=== PATIENT | male | born 1950 | race Caucasian/White ===

== ENCOUNTER 2017-08-07 17:51 | Emergency (ER) | payer BC, MEDICARE ==
--- NOTE | 2017-08-07 19:57 | RAD ---
LEFT HAND THREE VIEWS: History: 67-year-old male with left hand pain and hematoma and swelling following an injury after a fall. FINDINGS: There is prominent soft tissue swelling over the dorsal aspect of the hand and extending to the wris t. There is deformity of the fifth metacarpal, evidence for an old healed fracture. Arthrosis change s are noted involving the hand and wrist with some minimal angulation deformity at the proximal inte rphalangeal joint of the fourth finger, in part, possibly related to prior trauma at this location a s well. No evidence for acute fracture. IMPRESSION: Soft tissue swelling. Old healed fracture of the fifth metacarpal. Deformity at the fourth finger pr oximal interphalangeal joint possibly related to old injury and some secondary arthrosis changes. No evidence for acute fracture. POS: CHRISTIANO
== END 2017-08-07 19:20 | disposition home or self-care (01) ==
LOC: SCSER 17:51
DX: S60.222A Contusion of left hand, initial encounter (principal); E10.9 Type 1 diabetes mellitus without complications; E78.5 Hyperlipidemia, unspecified; I10 Essential (primary) hypertension; Z79.899 Other long term (current) drug therapy; Z86.73 Personal history of transient ischemic attack (TIA), and cerebral infarction without residual deficits; W01.198A Fall on same level from slipping, tripping and stumbling with subsequent striking against other object, initial encounter

== ENCOUNTER 2019-09-11 08:31 | Outpatient (CLI) | payer MEDICARE, BC ==
--- NOTE | 2019-09-11 10:13 | MRI ---
EXAM: MRI of the pelvis/prostate without contrast HISTORY: elevated PSA COMPARISON: None TECHNIQUE: Multiplanar multisequence MR images were obtained of the pelvis without IV contrast. Evalu ation of this exam was performed with a [employer] workstation. FINDINGS: Central gland: Moderate hypertrophy of the central gland consistent with BPH. No suspicious low T2 si gnal lesion is seen. Peripheral zone: No restricted diffusion is seen. No low signal on ADC map. Seminal vesicles: Intact without abnormality Neurovascular bundles: Intact Pelvic lymph nodes: No pelvic adenopathy Other visualized intrapelvic structures: Unremarkable Osseous structures: No marrow signal abnormality IMPRESSION: PI-RADS Category 2-low likelihood that a clinically significant cancer is present.
== END 2019-09-11 08:32 | disposition home or self-care (01) ==
LOC: TBSIIMAG 08:31
PROVIDERS: ATTEND Urology
DX: R97.20 Elevated prostate specific antigen [PSA] (principal)
CPT/HCPCS: 72195; 72197; 82565

== ENCOUNTER 2020-10-29 09:58 | Outpatient (CLI) | payer MEDICARE, BC ==
--- NOTE | 2020-10-29 11:50 | MRI ---
MRI OF THE PROSTATE WITHOUT AND WITH CONTRAST: COMPARISON: 09/11/2019. HISTORY: Elevated and increasing PSA. TECHNIQUE: Multiplanar, multisequence MR images were obtained of the prostate without and with IV contrast. FINDINGS: There is moderate hypertrophy of the central gland of the prostate consistent with BPH. Prostate vol ume is estimated at 31 mL. No restricted diffusion or low signal was seen on the ADC map within the prostate. No suspicious low T2 signal lesions are seen in the prostate. No abnormal enhancement is appreciated. The neurovascular bundles and seminal vessels are intact. No pelvic adenopathy is seen. No marrow s ignal abnormality is present. IMPRESSION: PIRADS category 2 - low likelihood that a clinically significant cancer is present. POS: MOUNAA
== END 2020-10-29 09:59 | disposition home or self-care (01) ==
LOC: TBSIIMAG 09:58
PROVIDERS: ATTEND Urology
DX: C61 Malignant neoplasm of prostate (principal)
CPT/HCPCS: 72197; 82565

== ENCOUNTER 2023-05-25 09:28 | Inpatient (IN) | payer MEDICARE, BC ==
[~2023-05-25 09:28] MED LIST: Magnevist 469MG/ML 20 ML VIAL ONE
[2023-05-25 11:37] VITALS: BMI 26.7
[2023-05-25] MEDS ORDERED: Dextrose 50% Abboject 50 ML SYRINGE SLOW IVP PRN (13:54)
[2023-05-25] MEDS ORDERED: Glucagon 1 MG/ML KIT IM PRN (13:54)
[2023-05-25] MEDS ORDERED: hydrALAZINE 20 MG/ML VIAL SLOW IVP PRN (13:54)
[2023-05-25] MEDS ORDERED: Ondansetron ODT 4 MG TAB PO PRN (13:54)
[2023-05-25] MEDS ORDERED: Ondansetron PF 4 MG/2 ML Vial IVP PRN (13:54)
[2023-05-25] MEDS ORDERED: Ipratropium/Albuterol 3 ML NEB NEB PRN (13:54)
[2023-05-25] MEDS ORDERED: Dextrose 5% in Water 1,000 ML IV PRN (13:54)
[2023-05-25] MEDS ORDERED: Sodium Chloride 0.9% 1,000 ML IV SCH (14:00)
[2023-05-25] MEDS: niCARdipine 25 MG in Sodium Chloride 0.9% 250 ML 250 ML IVPB SCH ×3 (14:25→18:43)
[2023-05-25] MEDS: hydrALAZINE 20 MG/ML VIAL SLOW IVP PRN (15:26)
[2023-05-25] MEDS ORDERED: Lidocaine 1% w/Epinephrine 1:100K 20 ML VIAL ONE (15:29)
[2023-05-25] MEDS ORDERED: Minoxidil 2.5 MG TAB PO SCH (15:30)
[2023-05-25] MEDS: niCARdipine 50 MG, Admixture Fee 1 EACH in Sodium Chloride 0.9% 250 ML 230 ML IVPB SCH ×2 (20:34→23:26)
[2023-05-25] MEDS: hydrALAZINE 25 MG TAB PO SCH (20:40)
[2023-05-25] MEDS: Atorvastatin Calcium 20 MG TAB PO SCH (20:40)
[2023-05-25] MEDS: Minoxidil 2.5 MG TAB PO SCH (20:41)
[2023-05-25] MEDS: Magnesium Chloride 64 MG TAB PO SCH (20:47)
[2023-05-25] MEDS: Insulin Regular 300 UNITS/3 ML VIAL SC PRN (20:57)
[2023-05-25] MEDS ORDERED: Famotidine 20 MG TAB PO SCH (21:00)
[2023-05-26] MEDS: niCARdipine 50 MG, Admixture Fee 1 EACH in Sodium Chloride 0.9% 250 ML 230 ML IVPB SCH ×2 (03:41→07:22)
[2023-05-26 03:54] LABS: #Neutrophils 10.2 thou/uL (1.40-6.50); %Basophils 0.3 % (0.0-1.0); %Eosinophils 0.3 % (0.0-10.0); %Lymphocytes 5.1 % (21.0-51.0); %Neutrophils 85.8 % (42.0-75.0); Hemoglobin 11.6 g/dL (14.0-18.0); Mean Corpuscular HGB CONC 33.1 g/dL (32.0-36.0); Mean Corpuscular Volume 99.7 fl (78.0-98.0); Mean Platelet Volume 9.7 fL (7.4-10.4); Platelet Count 161 10x3/uL (130-400); RBC Distribution Width 14.3 % (11.5-14.5); Red Blood Cell (RBC) Count 3.51 mill/uL (4.70-6.10); White Blood Cell (WBC) Count 11.9 10x3/uL (4.8-10.8)
[2023-05-26 04:32] LABS: Phosphorus 2.3 mg/dL (2.3-4.7)
[2023-05-26 04:34] LABS: Anion Gap 13 mmol/L (10-20); BUN (Urea Nitrogen) 23 mg/dL (8.4-25.7); Calc. Creatinine Clearance 34 mL/min (70-130); Calcium 9.8 mg/dL (7.8-10.44); Carbon Dioxide 21 mmol/L (23-31); Chloride 106 mmol/L (98-107); Estimated GFR 28; Glucose 219 mg/dL (80-115); Magnesium 1.9 mg/dL (1.6-2.6); Potassium 3.4 mmol/L (3.5-5.1); Sodium 137 mmol/L (136-145)
[2023-05-26] MEDS: Insulin Regular 300 UNITS/3 ML VIAL SC PRN ×3 (06:16→21:20)
[2023-05-26] MEDS ORDERED: Potassium Chloride 20 MEQ in Premix Bag 1 BAG IVPB SCH (08:15)
[2023-05-26] MEDS: Magnesium Chloride 64 MG TAB PO SCH ×2 (08:33→20:09)
[2023-05-26] MEDS: Calcitriol 0.25 MCG CAP PO SCH (08:33)
[2023-05-26] MEDS: cloNIDine 0.2 MG TAB PO SCH ×2 (08:33→20:14)
[2023-05-26] MEDS: Tamsulosin HCl 0.4 MG CAP PO SCH (08:34)
[2023-05-26] MEDS: Spironolactone 25 MG TAB PO SCH (08:34)
[2023-05-26] MEDS: hydrALAZINE 25 MG TAB PO SCH ×3 (08:34→20:13)
[2023-05-26] MEDS: Minoxidil 2.5 MG TAB PO SCH ×2 (08:35→20:12)
[2023-05-26] MEDS ORDERED: NIFEdipine 10 MG CAP PO SCH ×2 (09:00→21:00)
[2023-05-26] MEDS ORDERED: NIFEdipine XL 60 MG TAB PO SCH (09:00)
[2023-05-26] MEDS ORDERED: NIFEdipine XL 90 MG TAB PO SCH (09:00)
[2023-05-26] MEDS ORDERED: NIFEdipine XL 30 MG TAB PO SCH (09:15)
[2023-05-26] MEDS ORDERED: cloNIDine 0.1 MG TAB PO PRN (09:54)
[2023-05-26] MEDS ORDERED: Electrolyte Replacement Protocol FS PRN (11:30)
[2023-05-26] MEDS ORDERED: Magnesium 2 GM/50 ML(in water) 2 GM in Premix Bag 1 BAG IVPB SCH (12:15)
[2023-05-26] MEDS: Atorvastatin Calcium 20 MG TAB PO SCH (20:09)
[2023-05-26] MEDS: Famotidine 20 MG TAB PO SCH (20:10)
[2023-05-27] MEDS: Acetaminophen 325 MG TAB PO PRN (00:12)
[2023-05-27 00:59] LABS: Actual Bicarbonate (HCO3a) 22.3 mEq/L (22-28); Base Excess (BEa) -0.2 mEq/L (-2.0 to +3.0); CO2 Tension 29.6 mmHg (35.0-45.0); Calcium, Ionized (arterial) 1.27 mmol/L (1.12-1.30); Carboxyhemoglobin (COHb) 0.6 gm% (0.0-3.0); Hematocrit-ABG 34 % (42.0-52.0); Hemoglobin (Hb) 11.5 g/dL (14.0-18.0); Potassium - ABG Lab 3.81 mmol/L (3.70-5.30); pH, Arterial 7.495 (7.35-7.45)
[2023-05-27 01:00] LABS: Puncture Site RRA
[2023-05-27] MEDS ORDERED: Lidocaine 1% (PF) 30 ML VIAL ONE (01:04)
[2023-05-27] MEDS ORDERED: Lidocaine 1% (PF) 30 ML VIAL FS SCH (01:30)
[2023-05-27] MEDS ORDERED: Morphine 4 MG/ML VIAL ONE (01:34)
[2023-05-27] MEDS ORDERED: Morphine 4 MG/ML VIAL SLOW IVP SCH (02:30)
[2023-05-27] MEDS: Clindamycin/D5W 600 MG in Premix Bag 1 BAG IVPB SCH ×2 (02:41→10:13)
[2023-05-27 03:44] LABS: Actual Bicarbonate (HCO3v) 22.9 mEq/L (22-28); Base Excess -1.6 mEq/L (-2.0 to +3.0); Calcium, Ionized (venous) 1.24 mmol/L (1.16-1.32); Chloride (VBG) 105 mmol/L (98-106); Hematocrit-VBG 32 % (42.0-52.0); Hemoglobin (Hb) 10.9 g/dL (12.6-17.4); Potassium (VBG) 3.92 mmol/L (3.70-5.30); Sodium 139.6 mmol/L (133-146); pH (venous) 7.401 (7.32-7.43)
[2023-05-27 03:49] LABS: #Monocytes 0.5 thou/uL (0.11-0.59); #Neutrophils 10.5 thou/uL (1.40-6.50); %Basophils 0.2 % (0.0-1.0); %Eosinophils 0.1 % (0.0-10.0); %Lymphocytes 1.7 % (21.0-51.0); %Monocytes 4.2 % (0.0-10.0); %Neutrophils 93.3 % (42.0-75.0); Hematocrit 31.3 % (42.0-52.0); Hemoglobin 10.3 g/dL (14.0-18.0); Mean Corpuscular HGB CONC 32.9 g/dL (32.0-36.0); Mean Corpuscular Hemoglobin 32.6 pg (27.0-31.0); Mean Corpuscular Volume 99.1 fl (78.0-98.0); Mean Platelet Volume 9.5 fL (7.4-10.4); Platelet Count 137 10x3/uL (130-400); RBC Distribution Width 14.1 % (11.5-14.5); Red Blood Cell (RBC) Count 3.16 mill/uL (4.70-6.10); White Blood Cell (WBC) Count 11.2 10x3/uL (4.8-10.8)
[2023-05-27 04:12] LABS: Anion Gap 14 mmol/L (10-20); BUN (Urea Nitrogen) 30 mg/dL (8.4-25.7); Calc. Creatinine Clearance 29 mL/min (70-130); Calcium 9.3 mg/dL (7.8-10.44); Carbon Dioxide 22 mmol/L (23-31); Chloride 107 mmol/L (98-107); Estimated GFR 24; Glucose 297 mg/dL (80-115); Potassium 3.8 mmol/L (3.5-5.1); Sodium 139 mmol/L (136-145)
[2023-05-27] MEDS: Insulin Regular 300 UNITS/3 ML VIAL SC PRN ×2 (06:18→16:33)
[2023-05-27] MEDS ORDERED: NIFEdipine 10 MG CAP PO SCH (09:00)
[2023-05-27] MEDS: Calcitriol 0.25 MCG CAP PO SCH (09:05)
[2023-05-27] MEDS: NIFEdipine XL 60 MG TAB PO SCH (09:06)
[2023-05-27] MEDS: Minoxidil 2.5 MG TAB PO SCH ×2 (09:06→21:59)
[2023-05-27] MEDS: Tamsulosin HCl 0.4 MG CAP PO SCH (09:06)
[2023-05-27] MEDS: hydrALAZINE 25 MG TAB PO SCH ×3 (09:06→21:57)
[2023-05-27] MEDS: cloNIDine 0.2 MG TAB PO SCH ×2 (09:07→21:56)
[2023-05-27] MEDS: Spironolactone 25 MG TAB PO SCH (09:07)
[2023-05-27] MEDS: Magnesium Chloride 64 MG TAB PO SCH ×2 (10:14→21:59)
[2023-05-27] MEDS ORDERED: VANC IVPB PRN (10:29)
[2023-05-27] MEDS ORDERED: Vancomycin Dose by Levels Sliding Scale (Wt 71-99) FS SCH (11:15)
[2023-05-27] MEDS ORDERED: Vancomycin 1.5 GRAM/300 ML BAG 1.5 GM in Premix Bag 1 BAG IVPB SCH (11:30)
[2023-05-27] MEDS: Dextrose 5 % And 0.9 % NaCl 1,000 ML IV SCH (17:30)
[2023-05-27] MEDS: Insulin Glargine 30 UNITS/0.3 ML VIAL SC SCH (21:52)
[2023-05-27] MEDS: Atorvastatin Calcium 20 MG TAB PO SCH (21:55)
[2023-05-27] MEDS: Famotidine 20 MG TAB PO SCH (21:55)
[2023-05-28 04:14] LABS: #Eosinphils 0.1 thou/uL (0.0-0.7); #Monocytes 0.7 thou/uL (0.11-0.59); #Neutrophils 6.8 thou/uL (1.40-6.50); %Basophils 0.2 % (0.0-1.0); %Eosinophils 1.1 % (0.0-10.0); %Lymphocytes 4.9 % (21.0-51.0); %Monocytes 8.7 % (0.0-10.0); %Neutrophils 84.6 % (42.0-75.0); Hematocrit 29.1 % (42.0-52.0); Hemoglobin 9.7 g/dL (14.0-18.0); Mean Corpuscular HGB CONC 33.3 g/dL (32.0-36.0); Mean Corpuscular Hemoglobin 33.4 pg (27.0-31.0); Mean Corpuscular Volume 100.3 fl (78.0-98.0); Mean Platelet Volume 10.3 fL (7.4-10.4); Platelet Count 124 10x3/uL (130-400); RBC Distribution Width 13.9 % (11.5-14.5)
[2023-05-28 04:44] LABS: Anion Gap 12 mmol/L (10-20); BUN (Urea Nitrogen) 30 mg/dL (8.4-25.7); Calc. Creatinine Clearance 33 mL/min (70-130); Calcium 9.7 mg/dL (7.8-10.44); Carbon Dioxide 21 mmol/L (23-31); Chloride 110 mmol/L (98-107); Estimated GFR 29; Glucose 189 mg/dL (80-115); Magnesium 2.2 mg/dL (1.6-2.6); Phosphorus 3.3 mg/dL (2.3-4.7); Potassium 3.8 mmol/L (3.5-5.1); Sodium 139 mmol/L (136-145)
[2023-05-28] MEDS: Insulin Regular 300 UNITS/3 ML VIAL SC PRN ×2 (04:58→16:40)
[2023-05-28] MEDS: Tamsulosin HCl 0.4 MG CAP PO SCH (09:10)
[2023-05-28] MEDS: hydrALAZINE 25 MG TAB PO SCH ×3 (09:11→20:41)
[2023-05-28] MEDS: Spironolactone 25 MG TAB PO SCH (09:11)
[2023-05-28] MEDS: NIFEdipine XL 60 MG TAB PO SCH (09:11)
[2023-05-28] MEDS: Minoxidil 2.5 MG TAB PO SCH ×2 (09:11→20:42)
[2023-05-28] MEDS: Calcitriol 0.25 MCG CAP PO SCH (09:11)
[2023-05-28] MEDS: Magnesium Chloride 64 MG TAB PO SCH ×2 (09:12→20:42)
[2023-05-28 11:01] LABS: Actual Bicarbonate (HCO3v) 23.8 mEq/L (22-28); Base Excess 1.6 mEq/L (-2.0 to +3.0); Calcium, Ionized (venous) 1.14 mmol/L (1.16-1.32); Chloride (VBG) 109 mmol/L (98-106); Hematocrit-VBG 31 % (42.0-52.0); Hemoglobin (Hb) 10.6 g/dL (12.6-17.4); Sodium 140.8 mmol/L (133-146); pH (venous) 7.526 (7.32-7.43)
[2023-05-28] MEDS ORDERED: Vancomycin 1 GM in Premix Bag 1 BAG IVPB SCH (13:30)
[2023-05-28] MEDS: Dextrose 5 % And 0.9 % NaCl 1,000 ML IV SCH (13:41)
[2023-05-28] MEDS: Atorvastatin Calcium 20 MG TAB PO SCH (20:41)
[2023-05-28] MEDS: Famotidine 20 MG TAB PO SCH (20:42)
[2023-05-28] MEDS: Insulin Glargine 30 UNITS/0.3 ML VIAL SC SCH (21:25)
[2023-05-28] MEDS: cloNIDine 0.1 MG TAB PO PRN (23:00)
[2023-05-29] MEDS: hydrALAZINE 20 MG/ML VIAL SLOW IVP PRN (00:14)
[2023-05-29] MEDS: Acetaminophen 325 MG TAB PO PRN (01:02)
[2023-05-29] MEDS: Dexmedetomidine 400 MCG, Admixture Fee 1 EACH in Sodium Chloride 0.9% 96 ML IVPB SCH ×2 (01:09→21:13)
[2023-05-29] MEDS: Spironolactone 25 MG TAB PO SCH (08:17)
[2023-05-29] MEDS: Minoxidil 2.5 MG TAB PO SCH ×2 (08:17→20:44)
[2023-05-29] MEDS: Magnesium Chloride 64 MG TAB PO SCH ×2 (08:17→21:25)
[2023-05-29] MEDS: NIFEdipine XL 60 MG TAB PO SCH (08:17)
[2023-05-29] MEDS: Calcitriol 0.25 MCG CAP PO SCH (08:17)
[2023-05-29] MEDS: hydrALAZINE 25 MG TAB PO SCH ×3 (08:17→20:43)
[2023-05-29] MEDS: Tamsulosin HCl 0.4 MG CAP PO SCH (08:18)
[2023-05-29] MEDS: Dextrose 5 % And 0.9 % NaCl 1,000 ML IV SCH (08:19)
[2023-05-29 08:28] LABS: #Eosinphils 0.2 thou/uL (0.0-0.7); #Monocytes 0.6 thou/uL (0.11-0.59); #Neutrophils 6.7 thou/uL (1.40-6.50); %Basophils 0.3 % (0.0-1.0); %Eosinophils 2.8 % (0.0-10.0); %Lymphocytes 4.9 % (21.0-51.0); %Monocytes 7.2 % (0.0-10.0); %Neutrophils 84.3 % (42.0-75.0); Hematocrit 29.5 % (42.0-52.0); Hemoglobin 9.7 g/dL (14.0-18.0); Mean Corpuscular HGB CONC 32.9 g/dL (32.0-36.0); Mean Corpuscular Volume 100.3 fl (78.0-98.0); Mean Platelet Volume 9.7 fL (7.4-10.4); Platelet Count 127 10x3/uL (130-400); RBC Distribution Width 13.4 % (11.5-14.5); Red Blood Cell (RBC) Count 2.94 mill/uL (4.70-6.10); White Blood Cell (WBC) Count 7.9 10x3/uL (4.8-10.8)
[2023-05-29 08:47] LABS: Anion Gap 9 mmol/L (10-20); BUN (Urea Nitrogen) 29 mg/dL (8.4-25.7); Calc. Creatinine Clearance 39 mL/min (70-130); Calcium 9.2 mg/dL (7.8-10.44); Carbon Dioxide 24 mmol/L (23-31); Chloride 111 mmol/L (98-107); Estimated GFR 34; Glucose 133 mg/dL (80-115); Magnesium 2.1 mg/dL (1.6-2.6); Phosphorus 3.1 mg/dL (2.3-4.7); Potassium 3.6 mmol/L (3.5-5.1); Sodium 140 mmol/L (136-145)
[2023-05-29] MEDS ORDERED: Melatonin 3 MG TAB PO PRN (11:40)
[2023-05-29] MEDS: Insulin Regular 300 UNITS/3 ML VIAL SC PRN (15:46)
[2023-05-29] MEDS: Senokot S 8.6-50 MG TAB PO SCH (20:43)
[2023-05-29] MEDS: Atorvastatin Calcium 20 MG TAB PO SCH (20:43)
[2023-05-29] MEDS: Insulin Glargine 30 UNITS/0.3 ML VIAL SC SCH (20:44)
[2023-05-29] MEDS: Famotidine 20 MG TAB PO SCH (20:44)
[2023-05-30] MEDS: Dextrose 5 % And 0.9 % NaCl 1,000 ML IV SCH (04:21)
[2023-05-30] MEDS ORDERED: NIFEdipine XL 60 MG TAB PO SCH (09:00)
[2023-05-30] MEDS: hydrALAZINE 25 MG TAB PO SCH ×3 (09:19→20:34)
[2023-05-30] MEDS: Senokot S 8.6-50 MG TAB PO SCH ×2 (09:19→20:35)
[2023-05-30] MEDS: Tamsulosin HCl 0.4 MG CAP PO SCH (09:19)
[2023-05-30] MEDS: Spironolactone 25 MG TAB PO SCH (09:20)
[2023-05-30] MEDS: Minoxidil 2.5 MG TAB PO SCH ×2 (09:20→20:35)
[2023-05-30] MEDS: Calcitriol 0.25 MCG CAP PO SCH (09:20)
[2023-05-30] MEDS: Polyethylene Glycol 3350 17 GM Packet PER TUBE SCH (09:20)
[2023-05-30] MEDS: Magnesium Chloride 64 MG TAB PO SCH ×2 (09:52→20:34)
[2023-05-30] MEDS ORDERED: NIFEdipine XL 90 MG TAB PO SCH (10:15)
[2023-05-30] MEDS: hydrALAZINE 20 MG/ML VIAL SLOW IVP PRN (13:06)
[2023-05-30] MEDS: Insulin Regular 300 UNITS/3 ML VIAL SC PRN ×2 (13:34→17:53)
[2023-05-30] MEDS: Insulin Glargine 30 UNITS/0.3 ML VIAL SC SCH (20:35)
[2023-05-30] MEDS: Atorvastatin Calcium 20 MG TAB PO SCH (20:35)
[2023-05-30] MEDS: Famotidine 20 MG TAB PO SCH (20:35)
[2023-05-31] MEDS: Dextrose 5 % And 0.9 % NaCl 1,000 ML IV SCH ×2 (00:34→21:49)
[2023-05-31] MEDS: hydrALAZINE 20 MG/ML VIAL SLOW IVP PRN ×3 (01:38→14:11)
[2023-05-31] MEDS: Acetaminophen 325 MG TAB PO PRN (03:05)
[2023-05-31] MEDS: cloNIDine 0.1 MG TAB PO PRN ×3 (03:06→15:01)
[2023-05-31] MEDS: Magnesium Chloride 64 MG TAB PO SCH ×2 (08:38→21:50)
[2023-05-31] MEDS: Senokot S 8.6-50 MG TAB PO SCH ×2 (08:38→21:49)
[2023-05-31] MEDS: Polyethylene Glycol 3350 17 GM Packet PER TUBE SCH (08:38)
[2023-05-31] MEDS: Calcitriol 0.25 MCG CAP PO SCH (08:38)
[2023-05-31] MEDS: NIFEdipine XL 90 MG TAB PO SCH (08:39)
[2023-05-31] MEDS: hydrALAZINE 25 MG TAB PO SCH ×3 (08:39→21:49)
[2023-05-31] MEDS: Minoxidil 2.5 MG TAB PO SCH ×2 (08:40→21:50)
[2023-05-31] MEDS: Tamsulosin HCl 0.4 MG CAP PO SCH (08:40)
[2023-05-31] MEDS: Spironolactone 25 MG TAB PO SCH (08:40)
[2023-05-31] MEDS: Insulin Regular 300 UNITS/3 ML VIAL SC PRN ×3 (12:41→22:04)
[2023-05-31] MEDS: niCARdipine 25 MG in Sodium Chloride 0.9% 250 ML 250 ML IVPB SCH ×2 (18:53→22:27)
[2023-05-31] MEDS: Insulin Glargine 30 UNITS/0.3 ML VIAL SC SCH (21:47)
[2023-05-31] MEDS: Atorvastatin Calcium 20 MG TAB PO SCH (21:50)
[2023-05-31] MEDS: Famotidine 20 MG TAB PO SCH (21:50)
[2023-06-01] MEDS: niCARdipine 25 MG in Sodium Chloride 0.9% 250 ML 250 ML IVPB SCH ×4 (02:14→10:14)
[2023-06-01 04:28] LABS: #Eosinphils 0.1 thou/uL (0.0-0.7); #Monocytes 0.7 thou/uL (0.11-0.59); #Neutrophils 6.4 thou/uL (1.40-6.50); %Basophils 0.4 % (0.0-1.0); %Eosinophils 1.5 % (0.0-10.0); %Lymphocytes 6.5 % (21.0-51.0); %Monocytes 9.1 % (0.0-10.0); %Neutrophils 82.2 % (42.0-75.0); Hematocrit 36.5 % (42.0-52.0); Hemoglobin 12.4 g/dL (14.0-18.0); Mean Corpuscular Hemoglobin 32.5 pg (27.0-31.0); Mean Corpuscular Volume 95.5 fl (78.0-98.0); Mean Platelet Volume 9.5 fL (7.4-10.4); Platelet Count 197 10x3/uL (130-400); Red Blood Cell (RBC) Count 3.82 mill/uL (4.70-6.10); White Blood Cell (WBC) Count 7.8 10x3/uL (4.8-10.8)
[2023-06-01 04:54] LABS: Anion Gap 15 mmol/L (10-20); BUN (Urea Nitrogen) 27 mg/dL (8.4-25.7); Calc. Creatinine Clearance 40 mL/min (70-130); Calcium 10.5 mg/dL (7.8-10.44); Carbon Dioxide 22 mmol/L (23-31); Chloride 106 mmol/L (98-107); Estimated GFR 36; Glucose 178 mg/dL (80-115); Potassium 4.1 mmol/L (3.5-5.1); Sodium 139 mmol/L (136-145)
[2023-06-01] MEDS: Calcitriol 0.25 MCG CAP PO SCH (08:55)
[2023-06-01] MEDS: Spironolactone 25 MG TAB PO SCH (08:55)
[2023-06-01] MEDS: cloNIDine 0.2 MG TAB PO SCH ×3 (08:55→20:32)
[2023-06-01] MEDS: Senokot S 8.6-50 MG TAB PO SCH ×2 (08:56→20:32)
[2023-06-01] MEDS: hydrALAZINE 25 MG TAB PO SCH ×4 (08:56→20:32)
[2023-06-01] MEDS: Minoxidil 2.5 MG TAB PO SCH ×2 (08:56→20:33)
[2023-06-01] MEDS: NIFEdipine XL 90 MG TAB PO SCH (08:56)
[2023-06-01] MEDS: Tamsulosin HCl 0.4 MG CAP PO SCH (08:57)
[2023-06-01] MEDS: Magnesium Chloride 64 MG TAB PO SCH ×2 (08:57→21:08)
[2023-06-01] MEDS: Polyethylene Glycol 3350 17 GM Packet PER TUBE SCH (08:58)
[2023-06-01] MEDS ORDERED: Sodium Chloride 0.9% 10 ML ONE (09:12)
[2023-06-01] MEDS: Insulin Regular 300 UNITS/3 ML VIAL SC PRN ×3 (11:24→22:16)
[2023-06-01] MEDS ORDERED: VANCOMYCIN IVPB PRN (11:44)
[2023-06-01] MEDS ORDERED: [UNRECOGNIZED DRUG - OTHER] IVPB PRN (11:44)
[2023-06-01] MEDS: Vancomycin 1 GM in Premix Bag 1 BAG IVPB SCH (12:20)
[2023-06-01] MEDS: Labetalol HCl 100 MG/20 ML VIAL SLOW IVP PRN (13:18)
[2023-06-01] MEDS: Famotidine 20 MG TAB PO SCH (20:32)
[2023-06-01] MEDS: Acetaminophen 325 MG TAB PO PRN (20:32)
[2023-06-01] MEDS: Insulin Glargine 30 UNITS/0.3 ML VIAL SC SCH (20:33)
[2023-06-01] MEDS: Atorvastatin Calcium 20 MG TAB PO SCH (21:08)
[2023-06-02] MEDS: Calcitriol 0.25 MCG CAP PO SCH (09:40)
[2023-06-02] MEDS: Tamsulosin HCl 0.4 MG CAP PO SCH (09:41)
[2023-06-02] MEDS: hydrALAZINE 25 MG TAB PO SCH ×4 (09:41→20:04)
[2023-06-02] MEDS: Magnesium Chloride 64 MG TAB PO SCH ×2 (09:42→20:05)
[2023-06-02] MEDS: cloNIDine 0.2 MG TAB PO SCH ×3 (09:42→20:05)
[2023-06-02] MEDS: Spironolactone 25 MG TAB PO SCH (09:42)
[2023-06-02] MEDS: Senokot S 8.6-50 MG TAB PO SCH ×2 (09:42→20:05)
[2023-06-02] MEDS: Minoxidil 2.5 MG TAB PO SCH ×2 (09:42→20:06)
[2023-06-02] MEDS: Insulin Regular 300 UNITS/3 ML VIAL SC PRN ×2 (11:31→20:59)
[2023-06-02] MEDS: Vancomycin 1 GM in Premix Bag 1 BAG IVPB SCH (11:41)
[2023-06-02] MEDS: NIFEdipine XL 90 MG TAB PO SCH ×2 (11:42→14:08)
[2023-06-02] MEDS: Polyethylene Glycol 3350 17 GM Packet PER TUBE SCH (11:43)
[2023-06-02] MEDS: Famotidine 20 MG TAB PO SCH (20:04)
[2023-06-02] MEDS: Atorvastatin Calcium 20 MG TAB PO SCH (20:05)
[2023-06-02] MEDS: Insulin Glargine 30 UNITS/0.3 ML VIAL SC SCH (20:58)
[2023-06-02] MEDS ORDERED: diphenhydrAMINE 25 MG CAP PO PRN (22:19)
[2023-06-02] MEDS: Labetalol HCl 100 MG/20 ML VIAL SLOW IVP PRN (23:04)
[2023-06-02] MEDS ORDERED: hydrALAZINE 20 MG/ML VIAL SLOW IVP PRN (23:34)
[2023-06-03] MEDS: niCARdipine 25 MG in Sodium Chloride 0.9% 250 ML 250 ML IVPB SCH ×2 (00:26→04:02)
[2023-06-03] MEDS: Insulin Regular 300 UNITS/3 ML VIAL SC PRN ×3 (05:52→20:50)
[2023-06-03] MEDS: cloNIDine 0.2 MG TAB PO SCH ×3 (09:26→20:47)
[2023-06-03] MEDS: Calcitriol 0.25 MCG CAP PO SCH (09:26)
[2023-06-03] MEDS: Tamsulosin HCl 0.4 MG CAP PO SCH (09:26)
[2023-06-03] MEDS: Senokot S 8.6-50 MG TAB PO SCH ×2 (09:26→20:48)
[2023-06-03] MEDS: NIFEdipine XL 90 MG TAB PO SCH (09:26)
[2023-06-03] MEDS: Minoxidil 2.5 MG TAB PO SCH ×2 (09:26→20:48)
[2023-06-03] MEDS: hydrALAZINE 25 MG TAB PO SCH ×4 (09:26→20:48)
[2023-06-03] MEDS: Acetaminophen 325 MG TAB PO PRN ×2 (09:27→21:17)
[2023-06-03] MEDS: Spironolactone 25 MG TAB PO SCH (09:27)
[2023-06-03] MEDS: Polyethylene Glycol 3350 17 GM Packet PER TUBE SCH (09:28)
[2023-06-03] MEDS: Magnesium Chloride 64 MG TAB PO SCH ×2 (11:43→20:50)
[2023-06-03] MEDS: Insulin Glargine 30 UNITS/0.3 ML VIAL SC SCH (20:47)
[2023-06-03] MEDS: Atorvastatin Calcium 20 MG TAB PO SCH (20:48)
[2023-06-03] MEDS: Famotidine 20 MG TAB PO SCH (20:48)
[2023-06-04] MEDS: Insulin Regular 300 UNITS/3 ML VIAL SC PRN ×3 (04:27→18:36)
[2023-06-04] MEDS: Spironolactone 25 MG TAB PO SCH (08:27)
[2023-06-04] MEDS: Senokot S 8.6-50 MG TAB PO SCH ×2 (08:38→21:56)
[2023-06-04] MEDS: Polyethylene Glycol 3350 17 GM Packet PER TUBE SCH (08:38)
[2023-06-04] MEDS: Minoxidil 2.5 MG TAB PO SCH ×2 (08:38→21:57)
[2023-06-04] MEDS: Tamsulosin HCl 0.4 MG CAP PO SCH (08:38)
[2023-06-04] MEDS: Calcitriol 0.25 MCG CAP PO SCH (08:38)
[2023-06-04] MEDS: cloNIDine 0.2 MG TAB PO SCH ×3 (08:39→21:59)
[2023-06-04] MEDS: hydrALAZINE 25 MG TAB PO SCH ×4 (08:39→21:59)
[2023-06-04] MEDS: Magnesium Chloride 64 MG TAB PO SCH ×2 (08:43→21:58)
[2023-06-04] MEDS: NIFEdipine XL 90 MG TAB PO SCH (08:45)
[2023-06-04] MEDS: Atorvastatin Calcium 20 MG TAB PO SCH (21:56)
[2023-06-04] MEDS: Insulin Glargine 30 UNITS/0.3 ML VIAL SC SCH (21:57)
[2023-06-05] MEDS: Insulin Regular 300 UNITS/3 ML VIAL SC PRN ×3 (06:16→18:23)
[2023-06-05 06:23] LABS: Anion Gap 11 mmol/L (10-20); BUN (Urea Nitrogen) 43 mg/dL (8.4-25.7); Calc. Creatinine Clearance 31 mL/min (70-130); Calcium 10.2 mg/dL (7.8-10.44); Carbon Dioxide 26 mmol/L (23-31); Chloride 100 mmol/L (98-107); Estimated GFR 29; Glucose 208 mg/dL (80-115); Potassium 4.1 mmol/L (3.5-5.1); Sodium 133 mmol/L (136-145)
[2023-06-05] MEDS: Tamsulosin HCl 0.4 MG CAP PO SCH (10:26)
[2023-06-05] MEDS: Minoxidil 2.5 MG TAB PO SCH ×2 (10:26→21:09)
[2023-06-05] MEDS: Spironolactone 25 MG TAB PO SCH (10:26)
[2023-06-05] MEDS: Polyethylene Glycol 3350 17 GM Packet PER TUBE SCH (10:26)
[2023-06-05] MEDS: NIFEdipine XL 90 MG TAB PO SCH (10:27)
[2023-06-05] MEDS: Calcitriol 0.25 MCG CAP PO SCH (10:27)
[2023-06-05] MEDS: hydrALAZINE 25 MG TAB PO SCH ×4 (10:27→21:08)
[2023-06-05] MEDS: Magnesium Chloride 64 MG TAB PO SCH ×2 (10:27→21:09)
[2023-06-05] MEDS: cloNIDine 0.2 MG TAB PO SCH ×3 (10:27→21:08)
[2023-06-05] MEDS: Senokot S 8.6-50 MG TAB PO SCH ×2 (10:27→21:09)
[2023-06-05] MEDS: Acetaminophen 325 MG TAB PO PRN (21:05)
[2023-06-05] MEDS: Atorvastatin Calcium 20 MG TAB PO SCH (21:08)
[2023-06-05] MEDS: Insulin Glargine 30 UNITS/0.3 ML VIAL SC SCH (21:57)
[2023-06-06 00:06] LABS: #Basophils 0.1 thou/uL (0.0-0.2); #Monocytes 0.6 thou/uL (0.11-0.59); #Neutrophils 11.9 thou/uL (1.40-6.50); %Basophils 0.5 % (0.0-1.0); %Eosinophils 0.1 % (0.0-10.0); %Lymphocytes 3.5 % (21.0-51.0); %Monocytes 4.3 % (0.0-10.0); %Neutrophils 90.8 % (42.0-75.0); Hematocrit 31.9 % (42.0-52.0); Hemoglobin 10.9 g/dL (14.0-18.0); Mean Corpuscular HGB CONC 34.2 g/dL (32.0-36.0); Mean Corpuscular Hemoglobin 32.5 pg (27.0-31.0); Mean Corpuscular Volume 95.2 fl (78.0-98.0); Mean Platelet Volume 8.9 fL (7.4-10.4); Platelet Count 264 10x3/uL (130-400); RBC Distribution Width 12.7 % (11.5-14.5); Red Blood Cell (RBC) Count 3.35 mill/uL (4.70-6.10); White Blood Cell (WBC) Count 13.1 10x3/uL (4.8-10.8)
[2023-06-06 00:28] LABS: ALT (SGPT) 15 U/L (8-55); AST (SGOT) 18 U/L (5-34); Albumin 3.8 g/dL (3.4-4.8); Alkaline Phosphatase 72 U/L (40-110); Anion Gap 13 mmol/L (10-20); BUN (Urea Nitrogen) 39 mg/dL (8.4-25.7); Bilirubin, Total 0.7 mg/dL (0.2-1.2); Calc. Creatinine Clearance 29 mL/min (70-130); Calcium 10.3 mg/dL (7.8-10.44); Carbon Dioxide 24 mmol/L (23-31); Chloride 100 mmol/L (98-107); Estimated GFR 26; Globulin 2.7 g/dL (2.4-3.5); Glucose 258 mg/dL (80-115); Potassium 4.4 mmol/L (3.5-5.1); Protein, Total 6.5 g/dL (5.8-8.1); Sodium 133 mmol/L (136-145)
[2023-06-06 02:56] LABS: Bacteria/HPF None Seen HPF (None Seen); Bilirubin Negative (Negative); Blood, Urine Negative (Negative); CAUTI Indications for Culture Fever or rigors; Clarity Clear (Clear); Glucose, Urine (Dipstick) 70 mg/dL (Negative); Ketone, Urine Trace mg/dL (Negative); Leukocyte Negative Leu/uL (Negative); Nitrite Negative (Negative); Protein, Urine (Dipstick) 100 mg/dL (Neg-Trace); RBC/HPF 0-3 HPF (0-3); Specific Gravity, Urine 1.012 (1.002-1.036); Squamous Epithelial None Seen HPF (0-3); Urobilinogen Normal mg/dL (Less than 2); WBC/HPF 0-3 HPF (0-3)
[2023-06-06 03:04] LABS: Urine Culture Reflex No No
[2023-06-06 05:19] LABS: Troponin I 0.121 ng/mL (< 0.028)
[2023-06-06] MEDS: Sodium Chloride 0.9% 1,000 ML IV SCH ×2 (05:52→19:52)
[2023-06-06] MEDS: Insulin Regular 300 UNITS/3 ML VIAL SC PRN ×3 (06:50→17:49)
[2023-06-06 08:23] LABS: Anion Gap 11 mmol/L (10-20); BUN (Urea Nitrogen) 38 mg/dL (8.4-25.7); Calc. Creatinine Clearance 29 mL/min (70-130); Calcium 10.2 mg/dL (7.8-10.44); Carbon Dioxide 25 mmol/L (23-31); Chloride 101 mmol/L (98-107); Estimated GFR 27; Glucose 262 mg/dL (80-115); Potassium 4.1 mmol/L (3.5-5.1); Sodium 133 mmol/L (136-145)
[2023-06-06 08:28] LABS: Troponin I 0.131 ng/mL (< 0.028)
[2023-06-06] MEDS ORDERED: Iopamidol 370 76% 100 ML VIAL ONE (08:52)
[2023-06-06] MEDS: Spironolactone 25 MG TAB PO SCH (09:32)
[2023-06-06] MEDS: Calcitriol 0.25 MCG CAP PO SCH (09:32)
[2023-06-06] MEDS: Tamsulosin HCl 0.4 MG CAP PO SCH (09:32)
[2023-06-06] MEDS: cloNIDine 0.2 MG TAB PO SCH ×3 (09:32→21:23)
[2023-06-06] MEDS: Magnesium Chloride 64 MG TAB PO SCH ×2 (09:33→21:23)
[2023-06-06] MEDS: hydrALAZINE 25 MG TAB PO SCH ×4 (09:33→21:22)
[2023-06-06] MEDS: Senokot S 8.6-50 MG TAB PO SCH ×2 (09:33→21:22)
[2023-06-06] MEDS: NIFEdipine XL 90 MG TAB PO SCH (09:34)
[2023-06-06] MEDS: Minoxidil 2.5 MG TAB PO SCH ×2 (09:34→21:23)
[2023-06-06] MEDS: Polyethylene Glycol 3350 17 GM Packet PER TUBE SCH (09:34)
[2023-06-06] MEDS: Acetaminophen 500 MG TAB PO PRN ×2 (11:54→21:22)
[2023-06-06 12:11] LABS: Troponin I 0.118 ng/mL (< 0.028)
[2023-06-06] MEDS: Insulin Glargine 30 UNITS/0.3 ML VIAL SC SCH (21:23)
[2023-06-06] MEDS: Atorvastatin Calcium 20 MG TAB PO SCH (21:23)
[2023-06-07 06:30] LABS: ALT (SGPT) 9 U/L (8-55); AST (SGOT) 15 U/L (5-34); Albumin 3.4 g/dL (3.4-4.8); Alkaline Phosphatase 61 U/L (40-110); Anion Gap 11 mmol/L (10-20); BUN (Urea Nitrogen) 42 mg/dL (8.4-25.7); Bilirubin, Total 0.7 mg/dL (0.2-1.2); Calc. Creatinine Clearance 29 mL/min (70-130); Calcium 9.7 mg/dL (7.8-10.44); Carbon Dioxide 25 mmol/L (23-31); Chloride 107 mmol/L (98-107); Estimated GFR 27; Globulin 2.4 g/dL (2.4-3.5); Glucose 218 mg/dL (80-115); Protein, Total 5.8 g/dL (5.8-8.1); Sodium 139 mmol/L (136-145)
[2023-06-07] MEDS: Insulin Regular 300 UNITS/3 ML VIAL SC PRN ×3 (06:36→19:17)
[2023-06-07] MEDS: NIFEdipine XL 90 MG TAB PO SCH (09:12)
[2023-06-07] MEDS: Minoxidil 2.5 MG TAB PO SCH ×2 (09:12→20:57)
[2023-06-07] MEDS: Senokot S 8.6-50 MG TAB PO SCH ×2 (09:12→20:58)
[2023-06-07] MEDS: Calcitriol 0.25 MCG CAP PO SCH (09:13)
[2023-06-07] MEDS: hydrALAZINE 25 MG TAB PO SCH ×4 (09:13→21:01)
[2023-06-07] MEDS: Sodium Chloride 0.9% 1,000 ML IV SCH ×2 (09:14→20:58)
[2023-06-07] MEDS: Spironolactone 25 MG TAB PO SCH (09:14)
[2023-06-07] MEDS: Magnesium Chloride 64 MG TAB PO SCH ×2 (09:14→20:56)
[2023-06-07] MEDS: cloNIDine 0.2 MG TAB PO SCH ×3 (09:14→20:56)
[2023-06-07] MEDS: Tamsulosin HCl 0.4 MG CAP PO SCH (09:14)
[2023-06-07] MEDS: Polyethylene Glycol 3350 17 GM Packet PER TUBE SCH (09:15)
[2023-06-07] MEDS: Atorvastatin Calcium 20 MG TAB PO SCH (20:57)
[2023-06-07] MEDS: Insulin Glargine 30 UNITS/0.3 ML VIAL SC SCH (21:01)
[2023-06-08] MEDS: hydrALAZINE 25 MG TAB PO SCH (09:15)
[2023-06-08] MEDS: Magnesium Chloride 64 MG TAB PO SCH (09:15)
[2023-06-08] MEDS: Calcitriol 0.25 MCG CAP PO SCH (09:15)
[2023-06-08] MEDS: cloNIDine 0.2 MG TAB PO SCH (09:16)
[2023-06-08] MEDS: Spironolactone 25 MG TAB PO SCH (09:16)
[2023-06-08] MEDS: Senokot S 8.6-50 MG TAB PO SCH (09:16)
[2023-06-08] MEDS: Minoxidil 2.5 MG TAB PO SCH (09:17)
[2023-06-08] MEDS: NIFEdipine XL 90 MG TAB PO SCH (09:17)
[2023-06-08] MEDS: Tamsulosin HCl 0.4 MG CAP PO SCH (09:17)
[2023-06-08] MEDS: Polyethylene Glycol 3350 17 GM Packet PER TUBE SCH (09:17)
[2023-06-08 09:18] LABS: ALT (SGPT) 16 U/L (8-55); AST (SGOT) 20 U/L (5-34); Albumin 3.4 g/dL (3.4-4.8); Alkaline Phosphatase 60 U/L (40-110); Anion Gap 10 mmol/L (10-20); BUN (Urea Nitrogen) 42 mg/dL (8.4-25.7); Bilirubin, Total 0.7 mg/dL (0.2-1.2); Calc. Creatinine Clearance 29 mL/min (70-130); Calcium 9.9 mg/dL (7.8-10.44); Carbon Dioxide 25 mmol/L (23-31); Chloride 112 mmol/L (98-107); Estimated GFR 27; Globulin 2.4 g/dL (2.4-3.5); Glucose 190 mg/dL (83-110); Potassium 3.8 mmol/L (3.5-5.1); Protein, Total 5.8 g/dL (5.8-8.1); Sodium 143 mmol/L (136-145)
[2023-06-08 12:56] VITALS: BP 117/53; TEMP 99.3
[2023-06-08] MEDS: Insulin Regular 300 UNITS/3 ML VIAL SC PRN (14:30)
== END 2023-06-08 14:47 | disposition home or self-care (01) | DRG 23 ==
LOC: CCU 10:40 → SURG A 06-04 11:30
PROVIDERS: ADMIT Specialist; ATTEND Specialist
PROC: 009630Z Drainage of Cerebral Ventricle with Drainage Device, Percutaneous Approach (ICD-10-PCS; principal; 2023-05-27)
PROC: 4A133R1 Monitoring of Arterial Saturation, Peripheral, Percutaneous Approach (ICD-10-PCS; 2023-05-27)
DX: S06.350A Traumatic hemorrhage of left cerebrum without loss of consciousness, initial encounter (principal); G93.41 Metabolic encephalopathy; I69.354 Hemiplegia and hemiparesis following cerebral infarction affecting left non-dominant side; G91.1 Obstructive hydrocephalus; N17.9 Acute kidney failure, unspecified; W06.XXXA Fall from bed, initial encounter; I12.9 Hypertensive chronic kidney disease with stage 1 through stage 4 chronic kidney disease, or unspecified chronic kidney disease; N18.30 Chronic kidney disease, stage 3 unspecified; E78.5 Hyperlipidemia, unspecified; N40.0 Benign prostatic hyperplasia without lower urinary tract symptoms; E11.22 Type 2 diabetes mellitus with diabetic chronic kidney disease; E11.65 Type 2 diabetes mellitus with hyperglycemia; K59.00 Constipation, unspecified; Z88.5 Allergy status to narcotic agent; Z98.890 Other specified postprocedural states; Z88.0 Allergy status to penicillin; Z79.899 Other long term (current) drug therapy; R53.81 Other malaise
CPT/HCPCS: 36415; 36416; 36600; 70450; 70486; 70553; 71045; 71275; 72125; 80048; 80053; 80202; 81001; 82565; 82805; 83735; 84100; 84484; 85025; 85379; 87040; 93005; 93010; 93970; 96365; 96375; A9579; J0360; J1815; J2001; J2270; J3370; J3370-JW; J3475; J3480; J3490; J7042; J7050; Q9967

== ENCOUNTER 2023-06-27 12:28 | Outpatient (CLI) | payer MEDICARE, BC | END 2023-06-27 12:29 | disposition home or self-care (01) | LOC: CT 12:28 | PROVIDERS: ATTEND Surgery | DX: G91.1 Obstructive hydrocephalus (principal); G93.89 Other specified disorders of brain | CPT/HCPCS: 36415; 70450; 80053; 85027 ==